=== PATIENT | female | born 2000 | race Caucasian/White ===

== ENCOUNTER 2019-01-25 09:54 | Emergency (ER) | payer OTHER ==
[2019-01-25 10:08] VITALS: BP 118/61
--- NOTE | 2019-01-25 10:56 | ER Document Report ---
Addendum entered and electronically signed by NATALI ENGLE NP 01/25/19 11:04: Discharge - Discharge Clinical Impression: Urticaria Allergic reaction Qualifiers: Encounter type: initial encounter Qualified Code(s): T78.40XA - Allergy, unspecified, initial encounter Condition: Stable Disposition: HOME, SELF-CARE Additional Instructions: As discussed please continue to take the prednisone taper pack that the other provider prescribed to you. Please start taking the Pepcid as prescribed, fill the EpiPen if possible, keep one with you at all times. If you have to use the EpiPen please present to the emergency department immediately. Take Benadryl 50 mg every 6 hours, do not drive while taking Benadryl. I have given you a work note so that you do not have to work today, please go home and take a dose of Benadryl. Return to the emergency department with any new or worsening symptoms to include difficulty breathing, difficulty swallowing or any worsening symptoms. Prescriptions: Epinephrine [Epipen 2-James] 0.3 mg IM ONCE PRN #1 packet PRN Reason: Famotidine [Pepcid 40 mg Tablet] 40 mg PO BID #20 tablet Forms: Return to Work Original Note: HPI - HPI Time Seen by Provider: 01/25/19 10:34 Pain Level: 3 Notes: Patient is an otherwise healthy 18-year-old female presented to the emergency department with concern for allergic reaction. Patient reports 3 days ago she woke up with hives and swollen extremities. She states she is on urgent care provider who gave her oral dexamethasone and a prednisone taper pack. She reports she has been intermittently taking Benadryl. She reports that this morning she felt a abnormal sensation in her throat. She reports that she wanted to come get a second opinion today. She denies any difficulty swallowing. She does report her hives have improved. - REPRODUCTIVE Reproductive: DENIES: : Past Medical History - General Information source: Patient - Social History Smoking Status: Never Smoker Frequency of alcohol use: None Drug Abuse: None Family History: Reviewed & Not Pertinent - Medical History Medical History: Negative Surgical Hx: Negative - Immunizations Immunizations up to date: Yes Vertical Provider Document - CONSTITUTIONAL Notes: PHYSICAL EXAMINATION: GENERAL: Well-appearing, well-nourished and in no acute distress. HEAD: Atraumatic, normocephalic. EYES: Pupils equal round extraocular movements intact, conjunctiva are normal. ENT: Nares patent, airway patent, no tonsillar swelling, no tongue swelling. Patient swallowing without difficulty. NECK: Normal range of motion, no cervical lymphadenopathy. LUNGS: No respiratory distress, lung sounds clear and equal bilaterally. Musculoskeletal: Normal range of motion NEUROLOGICAL: Normal speech, normal gait. PSYCH: Normal mood, normal affect. SKIN: Scattered mild urticaria noted to lower extremities. - INFECTION CONTROL TRAVEL OUTSIDE OF THE [place] IN LAST 30 DAYS: No Course - Re-evaluation Re-evalutation: Patient appears well, nontoxic is alert, oriented and answering all questions appropriately. Patient is speaking full complete sentences and swallowing without difficulty. Patient currently taking prednisone Dosepak, she started her first dose this morning. Will start patient on Pepcid. She states she cannot take Benadryl and work so we will give her a work note for today so that she can go home and take a dose of Benadryl. Patient discharged home in stable condition. - Vital Signs Vital signs: Temp Pulse Resp BP Pulse Ox 97.7 F 97 H 18 118/61 97 01/25/19 10:06 01/25/19 10:06 01/25/19 10:06 01/25/19 10:06 01/25/19 10:06 Discharge - Discharge Clinical Impression: Urticaria Allergic reaction Qualifiers: Encounter type: initial encounter Qualified Code(s): T78.40XA - Allergy, unspecified, initial encounter Condition: Stable Disposition: HOME, SELF-CARE Additional Instructions: As discussed please continue to take the prednisone taper pack that the other provider prescribed to you. Please start taking the Pepcid as prescribed, fill the EpiPen if possible, keep one with you at all times. If you have to use the EpiPen please present to the emergency department immediately. Take Benadryl 50 mg every 6 hours, do not drive while taking Benadryl. I have given you a work note so that you do not have to work today, please go home and take a dose of Benadryl. Return to the emergency department with any new or worsening symptoms to include difficulty breathing, difficulty swallowing or any worsening symptoms. Prescriptions: Epinephrine [Epipen 2-James] 0.3 mg IM ONCE PRN #1 packet PRN Reason: Famotidine [Pepcid 40 mg Tablet] 40 mg PO BID #20 tablet
== END 2019-01-25 11:04 | disposition home or self-care (01) ==
LOC: ER 09:54
DX: T78.40XA Allergy, unspecified, initial encounter (principal); L50.9 Urticaria, unspecified; M79.89 Other specified soft tissue disorders
CPT/HCPCS: 99283